=== PATIENT | female | born 1965 | race Caucasian/White ===

== ENCOUNTER 2024-06-10 02:28 | Emergency (ER) | payer MEDICAID ==
[~2024-06-10] VITALS: Ht 172.7 cm; Wt 80.0 kg
[2024-06-10 02:32] VITALS: TEMP 98; O2SAT 100
[2024-06-10 04:19] VITALS: BP 124/86; PULSE 82; RESP 16
[2024-06-10] MEDS: KETOROLAC 15MG/ML VIAL IM ONE (04:19)
[2024-06-10 04:39] LABS: CLARITY URINE TURBID (CLEAR); COLOR URINE YELLOW (YELLOW); GLUCOSE URINE 3+ (NEGATIVE); KETONES URINE TRACE (NEGATIVE); LEUKOCYTE ESTERASE URINE 3+ (NEGATIVE); NITRITE URINE NEGATIVE (NEGATIVE); OCCULT BLOOD URINE 2+ (NEGATIVE); PROTEIN URINE 1+ (NEGATIVE); SPECIFIC GRAVITY URINE 1.021 (1.005-1.030)
[2024-06-10] MEDS: CEFTRIAXONE SODIUM 1G VIAL IM ONE (04:45)
[2024-06-10 05:17] LABS: BASOPHILS % 0.3 % (0.0-2.0); DIFFERENTIAL COMMENT 0; EOSINOPHILS % 3.3 % (0.0-5.0); HEMATOCRIT. 35.9 % (36.0-48.0); HEMOGLOBIN. 11.3 g/dL (12.0-16.0); LYMPHOCYTES % 17.4 % (20.0-50.0); MEAN CORPUSCULAR HGB CONC 31.5 g/dL (31.0-37.0); MEAN CORPUSCULAR VOLUME 73.1 fL (81.0-99.0); MEAN PLATELET VOLUME 7.7 fl (7.4-10.4); MONOCYTES % 7.4 % (2.0-8.0); NEUTROPHILS % 71.6 % (40.0-76.0); PLATELET 261 x1000/uL (130-400); RED BLOOD CELL COUNT 4.91 mill/uL (4.2-5.4); RED CELL DISTRIBUTION WIDTH 17.4 % (11.6-14.6); WHITE BLOOD COUNT 8.8 x1000/uL (4.5-11.0)
[2024-06-10 05:25] LABS: POTASSIUM 3.8 mEq/L (3.5-5.1)
[2024-06-10 05:26] LABS: CALCIUM 9.8 mg/dL (8.7-10.4)
[2024-06-10 05:31] LABS: CREATININE 1.1 mg/dL (0.6-1.0)
[2024-06-10 06:41] LABS: SQUAMOUS EPITHELIAL CELL URINE RARE /lpf (RARE/1+)
[2024-06-10 06:43] LABS: BACTERIA URINE TRACE; WBC URINE 15-25 /hpf (0-2)
[2024-06-10] MEDS ORDERED: MAGNESIUM/ALUMINUM HYDROXIDE/SIMETHICONE 30ML UDC PO PRN (10:45)
[2024-06-10] MEDS ORDERED: ACETAMINOPHEN 325MG TABLET PO PRN ×2 (10:45)
[2024-06-10] MEDS ORDERED: DEXTROSE 50% WATER 50ML SYRINGE IV PRN (10:45)
[2024-06-10] MEDS ORDERED: CLONIDINE 0.1MG TABLET PO PRN (10:45)
[2024-06-10] MEDS ORDERED: IPRATROPIUM/ALBUTEROL 0.5-3(2.5)MG/3ML NEB HHN PRN (10:45)
[2024-06-10] MEDS ORDERED: ONDANSETRON HCL 4MG/2ML INJ IV PRN (10:45)
[2024-06-10] MEDS ORDERED: GUAIFENESIN 200MG/10ML SUGAR FREE UDC PO PRN (10:45)
[2024-06-10] MEDS ORDERED: DOCUSATE SODIUM 100MG CAPSULE PO PRN (10:45)
[2024-06-10] MEDS ORDERED: INSULIN GLARGINE 100 UNITS/ML SUBCUT SCH (11:00)
[2024-06-10] MEDS ORDERED: BLOOD SUGAR DIAGNOSTIC STRIP TEST SCH (13:00)
[2024-06-10] MEDS ORDERED: INSULIN LISPRO 100 UNITS/ML SUBCUT SCH (13:20)
[2024-06-10 15:56] LABS: IRON 22 ug/dL (50-170)
[2024-06-10 15:58] LABS: TOTAL IRON BINDING CAPACITY 400 ug/dl (250-425)
[2024-06-11] MEDS ORDERED: CEFTRIAXONE 1GM/50ML 50 ML IV SCH (06:00)
[2024-06-11] MEDS ORDERED: INSULIN GLARGINE 100 UNITS/ML SUBCUT SCH (10:00)
== END 2024-06-10 18:10 | disposition left against medical advice (07) ==
LOC: ER 03:07 → EDBEDREQTM 06:06 → EDBEDREQ 06:06 → ER 18:10
DX: M87.079 Idiopathic aseptic necrosis of unspecified toe(s) (principal); E11.8 Type 2 diabetes mellitus with unspecified complications; Z79.4 Long term (current) use of insulin; Z87.440 Personal history of urinary (tract) infections; Z90.49 Acquired absence of other specified parts of digestive tract; Z90.89 Acquired absence of other organs
CPT/HCPCS: 80048; 81003; 82962; 83540; 83550; 85025; 87086; 87186; 87077; 36415; 93970; 76770; 96372; 99285; J0696; J1885; Z7610